=== PATIENT | female | born 1985 | race Caucasian/White ===

== ENCOUNTER → 2018-11-16 10:47 | Outpatient (CLI) | payer BC, SELFPAY ==
[2018-11-20 09:02] LABS: HPV Reflexed? NOT INDICATED
== END ==
PROVIDERS: PCP Family Medicine; Visit Provider Obstetrics & Gynecology
DX: Z12.4 Encounter for screening for malignant neoplasm of cervix (principal)
CPT/HCPCS: 87624; 88175; G0145

== ENCOUNTER → 2019-09-12 14:30 | Outpatient (CLI) | payer BC, SELFPAY ==
--- NOTE | 2019-09-12 14:42 | RAD_ITS ---
STUDY: X-RAY CHEST REASON FOR EXAM: Female, 34 years old. Contrast. TECHNIQUE: PA and lateral views of the chest. COMPARISON: None. FINDINGS: The lungs are clear and expanded. There is no demonstrated pleural abnormality. Normal size heart. Normal mediastinum and vinod. Normal visualized pulmonary arteries. Normal visualized aortic arch and descending thoracic aorta. Normal visualized thoracic spine. Normal visualized ribs, clavicles, and shoulders. There is no demonstrated abnormality of the visualized soft tissue structures of the upper abdomen. RAD/Chest PA and Lateral IMPRESSION: Normal x-ray examination of the chest. Electronically Signed: Sheng Owens, at 15:25 EST , Service support ,
== END ==
PROVIDERS: PCP Family Medicine; Referring Provider Nurse Practitioner; Visit Provider Nurse Practitioner
DX: J98.01 Acute bronchospasm (principal)
CPT/HCPCS: 71046

== ENCOUNTER → 2019-11-15 10:54 | Outpatient (CLI) | payer BC, SELFPAY ==
[2017-06-05 09:33] VITALS: BMI 29.9
[2019-11-18 10:37] LABS: HPV Reflexed? NOT INDICATED
== END ==
PROVIDERS: PCP Family Medicine; Referring Provider Obstetrics & Gynecology; Visit Provider Obstetrics & Gynecology
DX: Z12.4 Encounter for screening for malignant neoplasm of cervix (principal)
CPT/HCPCS: 88175; G0145

== ENCOUNTER → 2020-10-23 12:15 | Outpatient (CLI) | payer BC, SELFPAY ==
[2017-06-05 09:33] VITALS: BMI 29.9
[2020-10-23 13:01] LABS: Absolute Lymphocyte Count 1.87 X10^3/uL (0.83-4.51); Absolute Neutrophil Count 5.4 X10^3/uL (2.0-7.7); Basophil# 0.03 X10^3/uL; Basophil% 0.4 % (0-1); Eosinophil# 0.05 X10^3/uL; Eosinophils% 0.6 % (0-5); Hematocrit 34.7 % (37-47); Hemoglobin 11.5 g/dL (12.0-15.0); Lymphocyte # 1.87 X10^3/ul (4.0); Lymphocyte % 23.6 % (19-41); Mean Corp Hgb Conc 33.1 g/dL (32-36); Mean Corpuscular Hgb 30.3 pg (27.0-32.0); Mean Corpuscular Volume 91.3 fL (81-99); Monocyte# 0.57 X10^3/uL; Monocyte% 7.2 % (0-10); NRBC Flagged by Analyzer 0 % (0-5); Neutrophil # 5.39 X10^3/uL (2.7-7.7); Neutrophil % 67.8 % (47-70); Platelet Count 252 K/mm3 (150-450); RBC Distribution Width CV 12.7 % (11.6-14.6); RBC Distribution Width SD 41.9 fl (35.1-43.9); White Blood Count 7.9 K/mm3 (4.4-11.0)
[2020-10-23 13:02] LABS: Color, Urine Yellow (Yellow); Glucose, Dipstick Normal (Normal); Ketone-Dipstick Negative (Negative); Leukocyte Esterase-Dipstick Negative /ul (Negative); Nitrite-Dipstick Negative (Negative); Occult Blood-Urine Negative /ul (Negative); Protein-Dipstick Negative (Negative); Urine Bilirubin Dipstick Negative (Negative); Urine Clarity Sl. Cloudy (Clear); Urine Urobilinogen Normal (Normal)
[2020-10-23 13:19] LABS: Thyroid Stim Hormone (TSH) 0.88 uIU/mL (0.358-3.74)
[2020-10-23 13:53] LABS: HIV - WCH Non-Reactive (Nonreactive); Hepatitis B Surface Antigen Non-Reactive (Nonreactive); Hepatitis C Antibody Non-Reactive (Nonreactive); Rubella IgG Reactive (Nonreactive)
[2020-10-26 03:06] LABS: Chlamydia By Nucleic Acid AMP Negative (Negative)
[2020-10-26 14:46] LABS: Gonococcus By Nucleic Acid AMP Negative (Negative)
[2020-10-30 01:36] LABS: Prenatal RPR NONREACTIVE (NONREACTIVE)
== END ==
PROVIDERS: PCP Family Medicine; Visit Provider Obstetrics & Gynecology
DX: Z34.81 Encounter for supervision of other normal pregnancy, first trimester (principal); Z11.3 Encounter for screening for infections with a predominantly sexual mode of transmission
CPT/HCPCS: 36415; 81002; 84443; 85025; 86703; 86762; 86803; 87340; 87491; 87591

== ENCOUNTER → 2020-12-11 09:49 | Outpatient (CLI) | payer OTHER, SELFPAY ==
[2017-06-05 09:33] VITALS: BMI 29.9
== END ==
PROVIDERS: PCP Family Medicine; Visit Provider Obstetrics & Gynecology
DX: R69 Illness, unspecified (principal)

== ENCOUNTER 2021-06-02 06:55 | Inpatient (IN) | payer OTHER, SELFPAY ==
[2021-06-02] VITALS (36 sets, daily range): BP systolic 116–155; BP diastolic 56–86; PULSE 65–96; RESP 16–18; TEMP 36.1–37.5; O2SAT 96–99; BMI 31.3
[2021-06-02] MEDS: Lactated Ringers 1,000 ML 50 ML IV (07:35)
[2021-06-02] MEDS: Oxytocin 30 units/NS 500 ml 30 UNITS/500 ML IV.SOLN IV (07:48)
[2021-06-02 07:55] LABS: Absolute Lymphocyte Count 1.98 X10^3/uL (0.83-4.51); Absolute Neutrophil Count 6.5 X10^3/uL (2.0-7.7); Basophil# 0.04 X10^3/uL; Basophil% 0.4 % (0-1); Eosinophil# 0.14 X10^3/uL; Eosinophils% 1.5 % (0-5); Hematocrit 35.1 % (37-47); Hemoglobin 11.3 g/dL (12.0-15.0); Lymphocyte # 1.98 X10^3/ul (0.83-4.51); Mean Corp Hgb Conc 32.2 g/dL (32-36); Mean Corpuscular Hgb 30.4 pg (27.0-32.0); Mean Corpuscular Volume 94.4 fL (81-99); Mean Platelet Vol. 10.9 fl (6.2-12.0); Monocyte# 0.68 X10^3/uL; Monocyte% 7.2 % (0-10); NRBC Flagged by Analyzer 0 % (0-5); Neutrophil # 6.48 X10^3/uL (2.7-7.7); Neutrophil % 68.9 % (47-70); Platelet Count 213 K/mm3 (150-450); RBC Distribution Width CV 14.1 % (11.6-14.6); Red Blood Count 3.72 M/mm3 (4.2-5.4); White Blood Count 9.4 K/mm3 (4.4-11.0)
--- NOTE | 2021-06-02 08:00 | HP.PCM.OB_ITS ---
History and Physical Date of Admission: 06/02/21 Chief complaint: Induction of labor at term History of present illness: 35-year-old G3, P2 at 40 weeks and 4 days with ADRY 05/29/2021 by 8wk u/s arrives for induction of labor at term. Denies headache, vision changes, chest pain, shortness of breath, nausea vomiting, right upper quadrant pain. Patient states good movement. Obstetric history: G1: Term 08/22/2014 male G2: Term 06/05/2017 male G3: Current Past medical history: Anxiety Medications: vitamin, Lexapro, aspirin Past surgical history: [place] tooth extraction Allergies: Minocycline, sulfa Social history: Denies smoking, alcohol use, drug use Family history: Denies history DVT or PE Review of systems: Besides above pertinent positives a full review of systems was performed and found to be negative Physical exam: General: Normal-appearing no acute distress HEENT: Normocephalic atraumatic no cervical adenopathy Cardiac/respiratory: No use of accessory muscles nonlabored breathing Abdomen: Soft, nontender, gravid Pelvic exam: Cervical exam 2/50/-3. AROM with FSE minimal fluid appears clear at this time we will continue to expectantly manage. Extremities: No peripheral edema normal peripheral pulses Psych: Normal affect normal demeanor nonpressured speech Labs: White blood cell count 9.4 hemoglobin 11.3 hematocrit 35.1% platelets 213 Assessment plan: 35-year-old G3, P2 at 40 weeks and 4 days arrives for induction of labor at term Admit labor and delivery CEFM GBS negative Pitocin and AROM induction Routine orders Anesthesia see
[2021-06-02] MEDS: Lactated Ringers 500 ML 999 ML IV (09:21)
[2021-06-02] MEDS: fentaNYL-bupivacaine (epidural) 100 ML BAG EPIDURAL (10:06)
--- NOTE | 2021-06-02 11:59 | PLAC_PTH ---
PATIENT: NICHO SEGURA LOC: [facility] U#:[id number] AGE/SX: 35/F ROOM: [facility] RE06/02/[address]: Dr. Teddy Ghosh MD : 1985 BED: 1 DIS: 06/03/2021 SPEC #: [id number] RECD: 06/02/21 20:02 STATUS: ERIKA REHua #: [id number] BAUTISTA: 06/02/21 11:[address]: Teddy Ghosh DEPT: SURGICAL PATHOLOGY RECD BY: Roel Thomson ENTERED: 06/03/21 11:10 SP TYPE: PLACENTA OTHR DR: Dr. Lucius Ortiz MD Tissues: Placenta, NOS Procedures: Surgery Specimen Level V HEADER OPERATION: Vaginal delivery PRE-OP DIAGNOSIS: History placental infarct discovered at 20 weeks TISSUE SUBMITTED: Placenta MICROSCOPIC DIAGNOSIS Davies placenta (495 gm): Umbilical cord ? trivascular with no evidence of inflammation. Placental membranes ? no pathologic change. Placental disc ? organizing intraparenchymal hemorrhage with associated remote infarction, Benjy-Wellington change and focal nonspecific chronic villitis. AM:ryan 06/04/2021 MICROSCOPIC DESCRIPTION Slides are reviewed. GROSS DESCRIPTION SPECIMEN: PLACENTA / CLINICAL INFORMATION: A. Weight: 3.795 kg B. Gestational Age: 40 weeks C. Sex: Male PLACENTAL WEIGHT (POST FIXATION): 495 gm PLACENTAL DIMENSIONS: 19 x 17 x 3 cm PLACENTAL SHAPE: Usual ovoid PLACENTAL WEIGHT FOR GESTATIONAL AGE: Within 10-99th percentile MEMBRANES - Present A. Insertion: Marginal B. Site of rupture from edge: 3 cm from edge of placental disc C. Color of membrane: Reynolds-baker D. Abnormalities: None UMBILICAL CORD - Present A. Color: Reynolds-baker B. Insertion: Eccentric C. Length: 34 cm D. Diameter: 1.3 cm E. Number of vessels: Three F. Abnormalities: None PLACENTAL DISC - Present A. Color of surface: Reynolds-baker B. surface abnormalities: None C. Maternal cotyledons: Intact with minimal tears D. Attached retro placental clot: No clot E. Cut surface: Dark red and spongy F. Lesions: One lesion, white-reynolds, plaque-like and measuring 3.5 x 1.5 x 1 cm G. Separate clot: 4 x 3 x 1 cm SECTIONS SUBMITTED: 1. Umbilical cord ( end notched) 2. Umbilical cord, placental end 3. Membrane roll 4. Placental disc, and maternal surfaces, lesion 5. Placental disc, and maternal surfaces 6. Placental disc, and maternal surfaces AM:ryan 06/03/21 TC:5 CPT: 66829
[2021-06-02] MEDS: Oxytocin 30 units/NS 500 ml 30 UNITS/500 ML IV.SOLN 334 UNITS IV (12:06)
--- NOTE | 2021-06-02 12:24 | OP.PCM_ITS ---
Vaginal Delivery Findings Description of Procedure: Called by nursing for prolonged deceleration. Arrived to operating room, nursing had moved patient from labor room to the operating room. Upon evaluation heart tones previously in the 50s for 3 to 5 minutes now in the 110s with early decelerations. Cervical exam 10/100/0 station. With stable heart tones monitored in the OR for greater than 15 minutes. After reassuring heart tones noted brought back to labor room as cervical exam was now 10/100/+1. Upon arrival to labor room patient began to start pushing after first push repeat deceleration occurred tank truck engine mechanic was called. Normal spontaneous vaginal delivery of a viable male , vertex MATI. Head and shoulders delivered with ease. Cord cut and clamped. Baby handed off to patient then handed off to tank truck engine mechanic. Placenta delivered via cord traction and fundal massage. Second-degree midline perineal laceration noted and repaired in typical fashion. EBL 250 cc Apgars 7/9
[2021-06-02] MEDS: 0.9% Saline Lock 10 ML Syringe IV (14:36)
[2021-06-02] MEDS: Ibuprofen 600 MG Tablet PO (20:42)
[2021-06-02] MEDS: Senna/Docusate Sodium 1 Tablet PO (20:42)
[2021-06-02 21:22] LABS: Pathology Specimen OB SEE PATHOLOGY REPORT
[2021-06-03] VITALS: BP 116/71; PULSE 81; RESP 16; TEMP 36.9; O2SAT 95
[2021-06-03 04:55] VITALS: BP 98/55; PULSE 95; RESP 16; TEMP 36.2; O2SAT 95
[2021-06-03] MEDS: Escitalopram Oxalate 10 MG Tablet PO (06:05)
[2021-06-03 09:22] VITALS: BP 133/86; PULSE 66; RESP 16; TEMP 36.3; O2SAT 97
[2021-06-03 12:20] VITALS: BP 124/84; PULSE 64; RESP 16; TEMP 36.3; O2SAT 99
--- NOTE | 2021-06-03 13:19 | PCM.DC ---
Discharge Instructions Diet Discharge Diet: No restrictions Activity May resume sexual activity in: 4-6 weeks Dressing / Incision Call your doctor if you observe: Fever of 101 or Higher, Using more than 1 pad per hour, Shortness of breath, Chest pain, Calf discomfort, Uncontrolled pain and - (Persistent or severe headache) Follow Up Care Please Follow Up With: Teddy Ghosh MD When: 3 weeks for telehealth follow up 6 weeks for visit Test Results: Test results from this visit will be discussed in further detail at your follow-up appointment, if applicable. Discharge Plan Admission Admit Date/Time: 06/02/21 06:55 Attending Provider: Teddy Ghosh Primary Care Provider: Lucius Ortiz Discharge Orders/Prescriptions Prescriptions: No Action Prenatabs FA 1 TABLET tablet 1 tab PO DAILY RF: 0 (DME) breast pump [Pump In Style Advanced] 1 EACH device 1 ea miscellaneous DAILY PRN Qty: 1 RF: 0 ferrous sulfate 325 mg (65 mg iron) Tablet 325 mg PO DAILY RF: 0 aspirin [Baby Aspirin] 81 mg Tablet,Chewable 81 mg PO DAILY RF: 0 escitalopram oxalate [Lexapro] 10 mg Tablet 10 mg PO DAILY RF: 0
--- NOTE | 2021-06-03 13:21 | PCM.PN.OB ---
Subjective Subjective Pain controlled, out of bed, ambulating without difficulty. Voiding without difficulty. Passing flatus. Tolerates PO without nausea or vomiting. Denies heavy lochia. Objective Data Objective Data Vital Signs: Vital Signs Temp Pulse Resp BP Pulse Ox 97.4 F L 64 16 124/84 H 99 06/03/21 12:20 06/03/21 12:20 06/03/21 12:20 06/03/21 12:20 06/03/21 12:20 Oxygen Delivery Method Room Air Weight: 88.1 kg Body Mass Index (BMI) 31.3 Intake & Output: Intake and Output for Last 24 Hours 06/01/21 06/02/21 06/03/21 23:59 23:59 23:59 Intake Total 1547.10 / 1547.10 Output Total 3425 / 3425 Balance -1877.90 / -1877.90 Lab / Micro Data Result Diagrams: 06/02/21 07:35 Physical Exam Const alert, oriented x3 and no apparent distress General Appearance: cooperative and comfortable HEENT normocephalic Resp Auscultation: clear to auscultation bilaterally Cardio regular rate, regular rhythm, S1 normal heart sound and S2 normal heart sound OB / External & Speculum: other Uterus Palpation: other OB Fundus firm and nontender Extremity Extremity Narrative: no edema or calf tenderness Assessment & Plan (1) (spontaneous vaginal delivery): PLAN: O pos d/c home
[2021-06-03] MEDS: Senna/Docusate Sodium 1 Tablet PO (14:01)
== END 2021-06-03 15:20 | disposition home or self-care (01) | DRG 807 ==
PROVIDERS: Admitting Provider Obstetrics & Gynecology; PCP Family Medicine; Referring Provider Obstetrics & Gynecology; Visit Provider Obstetrics & Gynecology
DX: O76 Abnormality in fetal heart rate and rhythm complicating labor and delivery (principal); Z37.0 Single live birth; O43.813 Placental infarction, third trimester; O70.1 Second degree perineal laceration during delivery; O99.344 Other mental disorders complicating childbirth; F41.9 Anxiety disorder, unspecified; Z3A.40 40 weeks gestation of pregnancy; Z79.82 Long term (current) use of aspirin; Z87.59 Personal history of other complications of pregnancy, childbirth and the puerperium
CPT/HCPCS: 59025; 59050; 85025; 86850; 86900; 86901; 88307; 94799; 99218; J7120; A4216; G0378